=== PATIENT | female | born 1980 | race Caucasian/White ===

== ENCOUNTER 2017-05-28 18:16 | Emergency (ER) | payer OTHER ==
[~2017-05-28 18:16] MED LIST: BACITAB PO; FIRS1SOL3 PO; FLAG500T PO; MACR100C43 PO; SIME80TA PO
[2017-05-28] MEDS ORDERED: MOTR200T44 PO (18:35)
[2017-05-28 22:56] LABS: BASO # 0.1 10^3/uL (0.0-0.2); BASO % 0.7 % (0.0-1.0); EOS # 0.1 10^3/uL (0.0-0.50); EOS % 1.1 % (0.0-3.0); IMMATURE GRANULOCYTE % 0.5 % (0-0); LYMPH # 2.9 10^3/uL (1.5-4.5); LYMPH % 28.4 % (24.0-44.0); MEAN CORPUSCULAR HEMOGLOBIN 33.3 pg (27.0-33.0); MEAN CORPUSCULAR HGB CONC 34.2 g/dl (32.0-36.5); MEAN CORPUSCULAR VOLUME 97.2 fl (80.0-96.0); MONO # 0.6 10^3/uL (0.0-0.8); MONO % 6.1 % (0.0-5.0); NEUTROPHILS # 6.4 10^3/uL (1.8-7.7); NEUTROPHILS % 63.2 % (36.0-66.0); PLATELET COUNT, AUTOMATED 269 10^3/uL (150-450); RED CELL DISTRIBUTION WIDTH 12.7 % (11.5-14.5); WHITE BLOOD COUNT 10.1 10^3/uL (4.0-10.0)
[2017-05-28 23:31] LABS: ALBUMIN 3.7 GM/DL (3.2-5.2); ALBUMIN/GLOBULIN RATIO 1.09 (1.00-1.93); ALKALINE PHOSPHATASE 81 U/L (45-117); ALT/SGPT 18 U/L (12-78); ANION GAP 6 MEQ/L (8-16); AST/SGOT 17 U/L (15-37); BILIRUBIN,TOTAL 0.3 MG/DL (0.2-1.0); BLOOD UREA NITROGEN 14 MG/DL (7-18); CALCIUM LEVEL 9.1 MG/DL (8.5-10.1); CARBON DIOXIDE LEVEL 25 MEQ/L (21-32); CHLORIDE LEVEL 109 MEQ/L (98-107); CREATININE FOR GFR 0.85 MG/DL (0.55-1.02); GLOMERULAR FILTRATION RATE > 60.0 (>60); GLUCOSE, FASTING 88 MG/DL (70-105); POTASSIUM SERUM 4.1 MEQ/L (3.5-5.1); SODIUM LEVEL 140 MEQ/L (136-145); TOTAL PROTEIN 7.1 GM/DL (6.4-8.2)
[2017-05-28] MEDS ORDERED: AMOX500C PO (23:44)
[2017-05-28] MEDS ORDERED: VALT1TAB PO (23:44)
[2017-05-28] MEDS ORDERED: VIST50CA PO (23:47)
[2017-05-29 00:03] VITALS: BP 163/87
--- NOTE | 2017-05-29 09:38 | ECGEPIP ---
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
== END 2017-05-29 00:12 | disposition home or self-care (01) ==
LOC: M ED 18:16
DX: F41.9 Anxiety disorder, unspecified (principal); K02.9 Dental caries, unspecified; G51.0 Bell's palsy; Z82.49 Family history of ischemic heart disease and other diseases of the circulatory system

== ENCOUNTER 2017-09-22 01:12 | Emergency (ER) | payer OTHER ==
[2017-09-22] MEDS: LABETALOL HCL 100 MG/20 ML VIAL IV (02:30)
[2017-09-22 02:36] LABS: BASO # 0.1 10^3/uL (0.0-0.2); BASO % 1.2 % (0.0-1.0); EOS # 0.1 10^3/uL (0.0-0.50); EOS % 1.5 % (0.0-3.0); HEMATOCRIT 39.7 % (36.0-47.0); HEMOGLOBIN 13.8 g/dl (12.0-16.0); IMMATURE GRANULOCYTE % 0.5 % (0-3.0); LYMPH # 2.5 10^3/uL (1.5-4.5); LYMPH % 30.4 % (24.0-44.0); MEAN CORPUSCULAR HEMOGLOBIN 32.7 pg (27.0-33.0); MEAN CORPUSCULAR HGB CONC 34.8 g/dl (32.0-36.5); MEAN CORPUSCULAR VOLUME 94.1 fl (80.0-96.0); MONO # 0.7 10^3/uL (0.0-0.8); MONO % 8.9 % (0.0-5.0); NEUTROPHILS # 4.7 10^3/uL (1.8-7.7); NEUTROPHILS % 57.5 % (36.0-66.0); PLATELET COUNT, AUTOMATED 299 10^3/uL (150-450); RED BLOOD COUNT 4.22 10^6/uL (4.00-5.40); RED CELL DISTRIBUTION WIDTH 12.4 % (11.5-14.5); WHITE BLOOD COUNT 8.1 10^3/uL (4.0-10.0)
[2017-09-22 02:37] LABS: APPEARANCE, URINE CLEAR (CLEAR); BACTERIA, URINE AUTO NEGATIVE (NEGATIVE); BILIRUBIN, URINE AUTO NEGATIVE (NEGATIVE); BLOOD, URINE BLOOD 1+ (NEGATIVE); COLOR, URINE STRAW (YELLOW); GLUCOSE, URINE (UA) AUTO NEGATIVE (NEGATIVE); KETONE, URINE AUTO NEGATIVE (NEGATIVE); LEUKOCYTE ESTERASE, URINE AUTO NEGATIVE (NEGATIVE); NITRITE, URINE AUTO NEGATIVE (NEGATIVE); PROTEIN, URINE AUTO NEGATIVE (NEGATIVE); RBC, URINE AUTO 1 /HPF (0-3); SPECIFIC GRAVITY URINE AUTO 1.002 (1.002-1.035); SQUAMOUS EPITHELIAL CELL UR AU 0 /HPF (0-6); UROBILINOGEN, URINE AUTO 0.2 mg/dL (0.0-2.0); WBC, URINE AUTO 0 /HPF (0-3)
[2017-09-22 02:47] LABS: CONTROL LINE HCG INT CTR LINE PRESENT; HCG, SERUM QUALITATIVE NEGATIVE (NEGATIVE)
[2017-09-22 02:58] LABS: ANION GAP 11 MEQ/L (8-16); BLOOD UREA NITROGEN 14 MG/DL (7-18); CARBON DIOXIDE LEVEL 24 MEQ/L (21-32); CHLORIDE LEVEL 108 MEQ/L (98-107); CK-MB VALUE MASS 1.8 NG/ML (0.0-3.6); CPK CREATINE PHOSPHOKINASE 137 U/L (26-192); CREATININE FOR GFR 0.79 MG/DL (0.55-1.30); GLOMERULAR FILTRATION RATE > 60.0 (>60); GLUCOSE, FASTING 97 MG/DL (70-100); MB/CK RELATIVE INDEX 1.31 (< OR =4); POTASSIUM SERUM 3.9 MEQ/L (3.5-5.1); SODIUM LEVEL 143 MEQ/L (136-145); TROPONIN I < 0.02 NG/ML (< 0.10)
[2017-09-22] MEDS: LABETALOL 100 MG TAB PO (03:30)
[2017-09-22] MEDS ORDERED: ACETAMINOPHEN 325 MG TAB As Ordered (03:54)
== END 2017-09-22 06:24 | disposition home or self-care (01) ==
LOC: M ED 01:12
DX: I10 Essential (primary) hypertension (principal); F41.1 Generalized anxiety disorder; F17.210 Nicotine dependence, cigarettes, uncomplicated; Z82.49 Family history of ischemic heart disease and other diseases of the circulatory system
CPT/HCPCS: 70450

== ENCOUNTER 2017-09-24 13:32 | Emergency (ER) | payer OTHER ==
[2017-09-24] MEDS ORDERED: METOPROLOL 5 MG/5 ML VIAL IV (14:00)
[2017-09-24] MEDS: ASPIRIN 81 MG CHEW TABLET PO (14:00)
[2017-09-24 14:21] LABS: BASO # 0.1 10^3/uL (0.0-0.2); BASO % 0.8 % (0.0-1.0); EOS # 0.1 10^3/uL (0.0-0.50); EOS % 0.9 % (0.0-3.0); HEMATOCRIT 40.1 % (36.0-47.0); HEMOGLOBIN 13.8 g/dl (12.0-16.0); IMMATURE GRANULOCYTE % 0.3 % (0-3.0); LYMPH # 2.4 10^3/uL (1.5-4.5); LYMPH % 27.9 % (24.0-44.0); MEAN CORPUSCULAR HEMOGLOBIN 32.4 pg (27.0-33.0); MEAN CORPUSCULAR HGB CONC 34.4 g/dl (32.0-36.5); MEAN CORPUSCULAR VOLUME 94.1 fl (80.0-96.0); MONO # 0.6 10^3/uL (0.0-0.8); MONO % 7.2 % (0.0-5.0); NEUTROPHILS # 5.4 10^3/uL (1.8-7.7); NEUTROPHILS % 62.9 % (36.0-66.0); PLATELET COUNT, AUTOMATED 311 10^3/uL (150-450); RED BLOOD COUNT 4.26 10^6/uL (4.00-5.40); RED CELL DISTRIBUTION WIDTH 12.5 % (11.5-14.5); WHITE BLOOD COUNT 8.6 10^3/uL (4.0-10.0)
[2017-09-24 15:03] LABS: ALBUMIN/GLOBULIN RATIO 1.25 (1.00-1.93); ALKALINE PHOSPHATASE 64 U/L (45-117); ALT/SGPT 22 U/L (12-78); ANION GAP 8 MEQ/L (8-16); AST/SGOT 18 U/L (7-37); BILIRUBIN,DIRECT 0.1 MG/DL (0.0-0.2); BILIRUBIN,TOTAL 0.5 MG/DL (0.2-1.0); BLOOD UREA NITROGEN 15 MG/DL (7-18); CALCIUM LEVEL 9.4 MG/DL (8.5-10.1); CARBON DIOXIDE LEVEL 23 MEQ/L (21-32); CHLORIDE LEVEL 109 MEQ/L (98-107); CK-MB VALUE MASS 2.4 NG/ML (0.0-3.6); CPK CREATINE PHOSPHOKINASE 171 U/L (26-192); CREATININE FOR GFR 0.79 MG/DL (0.55-1.30); GLOMERULAR FILTRATION RATE > 60.0 (>60); GLUCOSE, FASTING 91 MG/DL (70-100); POTASSIUM SERUM 4.2 MEQ/L (3.5-5.1); SODIUM LEVEL 140 MEQ/L (136-145); TOTAL PROTEIN 7.2 GM/DL (6.4-8.2); TROPONIN I < 0.02 NG/ML (< 0.10)
[2017-09-24] MEDS: LORazepam 2 MG/ML VIAL (J2060) IV (15:43)
== END 2017-09-24 16:57 | disposition home or self-care (01) ==
LOC: M ED 13:32
DX: I10 Essential (primary) hypertension (principal); Z79.899 Other long term (current) drug therapy
CPT/HCPCS: J2060

== ENCOUNTER → 2017-09-27 | Outpatient (CLI) | payer OTHER ==
[2017-09-27 16:22] LABS: IRON (FE) 92 UG/DL (50-170); PERCENT SATURATION 27.4 % (13.2-45.0); THYROXINE (T4) 7.8 UG/DL (4.5-12.0); TOTAL IRON BINDING CAPACITY 336 UG/DL (250-450)
[2017-09-27 16:23] LABS: TOTAL 25(OH) VITAMIN D 10.5 NG/ML (30.0-100.0)
[2017-09-27 16:24] LABS: TOTAL T3 99.9 NG/DL (60.0-181.0)
== END ==
LOC: M LAB 15:20
DX: E05.90 Thyrotoxicosis, unspecified without thyrotoxic crisis or storm (principal); R53.83 Other fatigue
CPT/HCPCS: 83550

== ENCOUNTER 2018-01-12 19:10 | Emergency (ER) | payer OTHER ==
[2018-01-12] MEDS: ALPRAZolam 0.5 MG TAB PO (20:22)
[2018-01-12] MEDS: LABETALOL 100 MG TAB PO (20:25)
[2018-01-12 20:32] LABS: BASO # 0.1 10^3/uL (0.0-0.2); BASO % 0.9 % (0.0-1.0); EOS # 0.1 10^3/uL (0.0-0.50); EOS % 1.2 % (0.0-3.0); HEMATOCRIT 41.9 % (36.0-47.0); HEMOGLOBIN 14.3 g/dl (12.0-15.5); IMMATURE GRANULOCYTE % 0.4 % (0-3.0); LYMPH # 2.1 10^3/uL (1.5-4.5); LYMPH % 24.1 % (24.0-44.0); MEAN CORPUSCULAR HEMOGLOBIN 32.9 pg (27.0-33.0); MEAN CORPUSCULAR HGB CONC 34.1 g/dl (32.0-36.5); MEAN CORPUSCULAR VOLUME 96.3 fl (80.0-96.0); MONO # 0.6 10^3/uL (0.0-0.8); MONO % 6.5 % (0.0-5.0); NEUTROPHILS # 5.7 10^3/uL (1.8-7.7); NEUTROPHILS % 66.9 % (36.0-66.0); PLATELET COUNT, AUTOMATED 299 10^3/uL (150-450); RED BLOOD COUNT 4.35 10^6/uL (4.00-5.40); WHITE BLOOD COUNT 8.5 10^3/uL (4.0-10.0)
[2018-01-12 21:01] LABS: ALBUMIN 3.6 GM/DL (3.2-5.2); ALBUMIN/GLOBULIN RATIO 1.09 (1.00-1.93); ALKALINE PHOSPHATASE 60 U/L (45-117); ALT/SGPT 23 U/L (12-78); ANION GAP 4 MEQ/L (8-16); AST/SGOT 19 U/L (7-37); BILIRUBIN,DIRECT < 0.1 MG/DL (0.0-0.2); BILIRUBIN,TOTAL 0.5 MG/DL (0.2-1.0); BLOOD UREA NITROGEN 14 MG/DL (7-18); CALCIUM LEVEL 9.1 MG/DL (8.5-10.1); CARBON DIOXIDE LEVEL 28 MEQ/L (21-32); CHLORIDE LEVEL 111 MEQ/L (98-107); CREATININE FOR GFR 1.33 MG/DL (0.55-1.30); GLOMERULAR FILTRATION RATE 47.3 (>60); GLUCOSE, FASTING 164 MG/DL (70-100); SODIUM LEVEL 143 MEQ/L (136-145); TOTAL PROTEIN 6.9 GM/DL (6.4-8.2)
== END 2018-01-12 22:07 | disposition home or self-care (01) ==
LOC: M ED 19:10
DX: I16.0 Hypertensive urgency (principal); I10 Essential (primary) hypertension; Z79.899 Other long term (current) drug therapy
CPT/HCPCS: 93005

== ENCOUNTER → 2018-01-25 | Outpatient (CLI) | payer OTHER ==
[2018-01-25 13:16] LABS: ALBUMIN 3.6 GM/DL (3.2-5.2); ANION GAP 7 MEQ/L (8-16); BLOOD UREA NITROGEN 15 MG/DL (7-18); CALCIUM LEVEL 8.7 MG/DL (8.5-10.1); CARBON DIOXIDE LEVEL 24 MEQ/L (21-32); CHLORIDE LEVEL 109 MEQ/L (98-107); CREATININE FOR GFR 0.83 MG/DL (0.55-1.30); GLOMERULAR FILTRATION RATE > 60.0 (>60); GLUCOSE, FASTING 84 MG/DL (70-100); POTASSIUM SERUM 4.6 MEQ/L (3.5-5.1); SODIUM LEVEL 140 MEQ/L (136-145)
[2018-01-29 10:21] LABS: ALDOS/RENIN RATIO 8.5 (0.0-30.0); RENIN ACTIVITY 0.822 ng/mL/hr (0.167-5.380)
== END ==
LOC: M LAB 11:59
DX: I10 Essential (primary) hypertension (principal)
CPT/HCPCS: 84244

== ENCOUNTER → 2020-05-14 | Outpatient (CLI) | payer OTHER ==
[~2020-05-14] MED LIST changes: +AMLO1TAB24 PO; +AMOX500C PO; -FIRS1SOL3 PO; +FIRS50SO PO; +LABE10TAB PO; +MOTR200T44 PO; +VALT1TAB PO; +VIST50CA PO; +XANA1TAB2 PO
[2020-05-14 16:51] LABS: AMPHETAMINES URINE REFLEX NEGATIVE (NEGATIVE); BARBITURATES URINE REFLEX NEGATIVE (NEGATIVE); BENZODIAZEPINES URINE REFLEX NEGATIVE (NEGATIVE); CANNABINOIDS URINE REFLEX NEGATIVE (NEGATIVE); COCAINE METABOLITE URINE REFLE NEGATIVE (NEGATIVE); METHADONE URINE REFLEX NEGATIVE (NEGATIVE); OPIATES URINE REFLEX NEGATIVE (NEGATIVE); PHENCYCLIDINE URINE REFLEX NEGATIVE (NEGATIVE)
== END ==
LOC: M WUC 11:42
PROVIDERS: ATTEND Nurse Practitioner Family
DX: F41.1 Generalized anxiety disorder (principal)

== ENCOUNTER → 2021-01-31 | Outpatient (REF) | payer OTHER ==
[~2021-01-31] MED LIST changes: +LABE100T4 PO; -LABE10TAB PO; +SIME80CH5 PO; -SIME80TA PO
[2021-01-31 21:48] LABS: CHLAMYDIA DNA AMPLIFICATION NEGATIVE (NEGATIVE); GC DNA AMPLIFICATION NEGATIVE (NEGATIVE)
== END ==
LOC: M SFHCLERA 19:07
PROVIDERS: ATTEND Nurse Practitioner Family
DX: Z01.419 Encounter for gynecological examination (general) (routine) without abnormal findings (principal); Z11.3 Encounter for screening for infections with a predominantly sexual mode of transmission

== ENCOUNTER → 2021-04-08 | Outpatient (REF) | payer OTHER | LOC: M SFHCLERA 17:13 | PROVIDERS: ATTEND Nurse Practitioner Family | DX: R30.0 Dysuria (principal) ==

== ENCOUNTER 2023-07-29 19:03 | Emergency (ER) | payer OTHER ==
[~2023-07-29] VITALS: Ht 147.3 cm; Wt 44.8 kg
[~2023-07-29 19:03] MED LIST changes: -LABE100T4 PO; +LABE100T6 PO
[2023-07-29] MEDS ORDERED: NS 500 ML IV ONE (19:55)
[2023-07-29 20:20] LABS: VENOUS BASE EXCESS -5.7 (-2.0-2.0); VENOUS O2 SATURATION 81.5 % (60.0-80.0); VENOUS PARTIAL PRESSURE O2 47.8 mmHg (30.0-50.0); VENOUS PH 7.317 UNITS (7.330-7.430); VENOUS STANDARD HCO3 19.5 MMOL/L; VENOUS TOTAL CO2 21.2 MMOL/L (24.0-28.0)
[2023-07-29 20:27] LABS: BASO # 0.1 10^3/uL (0.0-0.2); BASO % 0.8 % (0.0-1.0); EOS # 0.2 10^3/uL (0.0-0.5); EOS % 2.8 % (0.0-3.0); HEMATOCRIT 42.4 % (36.0-47.0); HEMOGLOBIN 14.4 g/dl (12.0-15.5); LYMPH % 13.3 % (24.0-44.0); MEAN CORPUSCULAR HEMOGLOBIN 34.2 pg (27.0-33.0); MEAN CORPUSCULAR VOLUME 100.7 fl (80.0-96.0); MONO # 0.5 10^3/uL (0.0-0.8); MONO % 6.2 % (2.0-8.0); NEUTROPHILS # 5.9 10^3/uL (1.5-8.5); NEUTROPHILS % 76.1 % (36.0-66.0); PLATELET COUNT, AUTOMATED 229 10^3/uL (150-450); RED BLOOD COUNT 4.21 10^6/uL (4.00-5.40); WHITE BLOOD COUNT 7.7 10^3/uL (4.0-10.0)
[2023-07-29] MEDS ORDERED: METAL LOCK LOOP XX ONE (20:33)
[2023-07-29 20:45] LABS: ETHYL ALCOHOL (ETHANOL) 0.229 % (0.000-0.010)
[2023-07-29 20:47] LABS: BLOOD UREA NITROGEN 11 MG/DL (9-23); CALCIUM LEVEL 9.3 MG/DL (8.5-10.1); CARBON DIOXIDE LEVEL 19 MMOL/L (20-31); CHLORIDE LEVEL 110 MMOL/L (98-107); CK-MB VALUE MASS 1.5 NG/ML (<3.6); CREATININE FOR GFR 0.65 MG/DL (0.55-1.30); GLOMERULAR FILTRATION RATE > 60.0 (>58); GLUCOSE, FASTING 92 MG/DL (60-100); MAGNESIUM LEVEL 1.9 MG/DL (1.8-2.4); POTASSIUM SERUM 4.1 MMOL/L (3.5-5.1); SODIUM LEVEL 138 MMOL/L (136-145)
[2023-07-29 20:50] LABS: THYROID STIMULATING HORMONE 0.344 uIU/ML (0.55-4.78)
[2023-07-29 20:55] LABS: CPK CREATINE PHOSPHOKINASE 163 U/L (34-145); MB/CK RELATIVE INDEX 0.92 (< OR =4)
[2023-07-29] MEDS ORDERED: ISOVUE-370 76% 100ML VIAL As Ordered ONE (21:00)
[2023-07-29 21:32] VITALS: BP 133/72; TEMP 102.2; O2SAT 94
[2023-07-29] MEDS ORDERED: ACETAMINOPHEN TAB 650MG DOSE (2X325MG) PO ONE (21:35)
[2023-07-29] MEDS ORDERED: OSELTAMIVIR PHOSPHATE 75 MG CAP (TAMIFLU) PO ONE ×2 (21:35→21:45)
[2023-07-29] MEDS ORDERED: OSEL75CA PO (21:40)
[2023-07-29] MEDS ORDERED: ONDA8TAB8 PO (21:40)
== END 2023-07-29 21:51 | disposition home or self-care (01) ==
LOC: M ED 19:03
DX: J09.X2 Influenza due to identified novel influenza A virus with other respiratory manifestations (principal); I10 Essential (primary) hypertension; F41.9 Anxiety disorder, unspecified; F17.200 Nicotine dependence, unspecified, uncomplicated; Z79.899 Other long term (current) drug therapy
CPT/HCPCS: 70450; 71275; 80048; 82077; 82550; 82553; 82803; 83735; 84443; 85025; 85379; 87486; 87581; 87633; 87798; 93005; 93041; 94760; 99284; Q9967